=== PATIENT | female | born 1960 | race Two or more races ===

== ENCOUNTER → 2017-10-12 | Outpatient (CLI) | payer MEDICARE | LOC: M ADAMS 17:09 | DX: M25.532 Pain in left wrist (principal) | CPT/HCPCS: 73110 ==

== ENCOUNTER 2019-05-18 17:18 | Emergency (ER) | payer MEDICARE ==
[~2019-05-18] VITALS: Ht 167.6 cm; Wt 74.5 kg
[2019-05-18] MEDS ORDERED: VENTAER PO (17:47)
[2019-05-18] MEDS ORDERED: ADVA230A PO (17:47)
[2019-05-18 18:06] LABS: BASO % 0.3 % (0.0-1.0); EOS # 0.3 10^3/uL (0.0-0.5); EOS % 2.9 % (0.0-3.0); HEMOGLOBIN 15.4 g/dl (12.0-15.5); LYMPH # 2.9 10^3/uL (1.5-5.0); LYMPH % 25.3 % (24.0-44.0); MEAN CORPUSCULAR HEMOGLOBIN 30.5 pg (27.0-33.0); MEAN CORPUSCULAR HGB CONC 33.5 g/dl (32.0-36.5); MEAN CORPUSCULAR VOLUME 91.1 fl (80.0-96.0); MONO # 0.8 10^3/uL (0.0-0.8); MONO % 6.6 % (0.0-5.0); NEUTROPHILS # 7.5 10^3/uL (1.5-8.5); NEUTROPHILS % 64.7 % (36.0-66.0); PLATELET COUNT, AUTOMATED 245 10^3/uL (150-450); RED BLOOD COUNT 5.05 10^6/uL (4.00-5.40); WHITE BLOOD COUNT 11.6 10^3/uL (4.0-10.0)
[2019-05-18 18:34] LABS: CALCIUM LEVEL 9.2 MG/DL (8.5-10.1); CREATININE FOR GFR 1.06 MG/DL (0.55-1.30); GLOMERULAR FILTRATION RATE 56.7 (>51); POTASSIUM SERUM 4.3 MEQ/L (3.5-5.1); THYROID STIMULATING HORMONE 1.27 uIU/ML (0.358-3.740)
[2019-05-18 19:57] LABS: INFLUENZA A AMPLIFICATION NEGATIVE (NEGATIVE); INFLUENZA B AMPLIFICATION NEGATIVE (NEGATIVE)
[2019-05-18] MEDS ORDERED: AUGM500T34 PO (20:28)
[2019-05-18] MEDS ORDERED: PRED20TA PO (20:28)
[2019-05-18] MEDS ORDERED: NS 500 ML IV ONE (20:30)
[2019-05-18] MEDS ORDERED: dexameTHASONE 20 MG/5 ML VIAL (J1100) IV ONE (20:30)
[2019-05-18 21:29] VITALS: BP 122/66
--- NOTE | 2019-05-19 05:01 | ECGEPIP ---
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
--- NOTE | 2019-05-19 07:17 | REP ---
PA and lateral chest: There are no comparisons. Lung maritnez are hyperinflated but otherwise clear. Cardiac size is normal. The anthony, mediastinum, skeletal structures are unremarkable per Impression: Hyperinflation, otherwise negative PA and lateral chest. Electronically Signed by Kelechi Florez MD 05/19/2019 07:08 A
== END 2019-05-18 21:45 | disposition home or self-care (01) ==
LOC: M ED 17:18
DX: J32.9 Chronic sinusitis, unspecified (principal); R09.89 Other specified symptoms and signs involving the circulatory and respiratory systems; R05 Cough; J45.909 Unspecified asthma, uncomplicated; J44.9 Chronic obstructive pulmonary disease, unspecified; I95.1 Orthostatic hypotension; Z87.891 Personal history of nicotine dependence; Z88.2 Allergy status to sulfonamides; Z88.5 Allergy status to narcotic agent; Z91.040 Latex allergy status; Z79.51 Long term (current) use of inhaled steroids
CPT/HCPCS: 71046; 80048; 84443; 85025; 87502; 93005; 93041; 94760; 96361; 96374; 99285; J1100

== ENCOUNTER → 2021-01-12 | Outpatient (CLI) | payer MEDICARE ==
[~2021-01-12] MED LIST: ADVA230A PO; AUGM500T34 PO; PRED20TA PO; VENTAER PO
--- NOTE | 2021-01-13 07:46 | REP ---
INDICATION: CIGARETTE NICOTINE DEPENDENCE, LUNG CA SCREENING COMPARISON: None. TECHNIQUE: Axial noncontrast images from the thoracic inlet to the upper abdomen using low-dose lung screening technique (LDCT). 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 No acute consolidation, significant nodule, or mass lesion. No pleural effusion. No pneumothorax. Mediastinum is grossly unremarkable. IMPRESSION: Lung-RADS category 1. No suspicious nodule or mass lesion. Management recommendations include annual low-dose CT surveillance. COPD/emphysematous changes noted. <Electronically signed by Zana Bates > 01/13/21 1615
== END ==
LOC: M RAD 09:33
PROVIDERS: ATTEND Physician Assistant
DX: F17.210 Nicotine dependence, cigarettes, uncomplicated (principal)

== ENCOUNTER → 2022-09-05 | Outpatient (REF) | payer MEDICARE ==
[2022-09-05 17:31] LABS: HEMATOCRIT 44.4 % (36.0-47.0); HEMOGLOBIN 13.8 g/dl (12.0-15.5); MEAN CORPUSCULAR HEMOGLOBIN 28.6 pg (27.0-33.0); MEAN CORPUSCULAR HGB CONC 31.1 g/dl (32.0-36.5); MEAN CORPUSCULAR VOLUME 91.9 fl (80.0-96.0); PLATELET COUNT, AUTOMATED 282 10^3/uL (150-450); RED BLOOD COUNT 4.83 10^6/uL (4.00-5.40); WHITE BLOOD COUNT 7.5 10^3/uL (4.0-10.0)
[2022-09-05 17:54] LABS: MALB URINE SIEMENS < 3.0 MG/DL
[2022-09-05 17:55] LABS: CREATININE, URINE 30.7 MG/DL; MAU/CREAT RATIO 9.7 MCG/MG (0.0-30.0)
[2022-09-05 17:59] LABS: ALBUMIN 3.9 G/DL (3.2-5.2); ALKALINE PHOSPHATASE 64 U/L (46-116); ALT/SGPT 23 U/L (7.0-40); AST/SGOT 19 U/L (<34); BILIRUBIN,TOTAL 0.5 MG/DL (0.3-1.2); BLOOD UREA NITROGEN 11 MG/DL (9-23); CALCIUM LEVEL 9.3 MG/DL (8.3-10.6); CARBON DIOXIDE LEVEL 29 MMOL/L (20-31); CHLORIDE LEVEL 102 MMOL/L (98-107); CHOLESTEROL LEVEL 199 MG/DL (<200); CHOLESTEROL RISK RATIO 4.06 (<5); CREATININE FOR GFR 0.75 MG/DL (0.55-1.30); GLOMERULAR FILTRATION RATE > 60.0 (>45); GLUCOSE, FASTING 81 MG/DL (74-106); LDL CHOLESTEROL 127.8 MG/DL (<100); NON-HDL-C 150 MG/DL; POTASSIUM SERUM 4.6 MMOL/L (3.5-5.1); SODIUM LEVEL 141 MMOL/L (136-145); TRIGLYCERIDES LEVEL 111 MG/DL (<150)
[2022-09-05 18:00] LABS: THYROID STIMULATING HORMONE 2.776 uIU/ML (0.55-4.78)
[2022-09-05 18:01] LABS: FREE T4 1.21 NG/DL (0.89-1.76)
== END ==
LOC: M SFHCADAM 14:44
PROVIDERS: ATTEND Physician Assistant
DX: Z12.31 Encounter for screening mammogram for malignant neoplasm of breast (principal); L73.2 Hidradenitis suppurativa; F17.211 Nicotine dependence, cigarettes, in remission; Z12.11 Encounter for screening for malignant neoplasm of colon; J44.9 Chronic obstructive pulmonary disease, unspecified; R63.5 Abnormal weight gain; I10 Essential (primary) hypertension; Z13.220 Encounter for screening for lipoid disorders

== ENCOUNTER → 2022-11-14 | Outpatient (CLI) | payer MEDICARE | LOC: M RAD 10:32 | PROVIDERS: ATTEND Physician Assistant | DX: Z87.891 Personal history of nicotine dependence (principal) ==

== ENCOUNTER → 2023-10-03 | Outpatient (CLI) | payer MEDICARE | LOC: M WHC 11:27 | PROVIDERS: ATTEND Physician Assistant | DX: Z12.31 Encounter for screening mammogram for malignant neoplasm of breast (principal); Z13.820 Encounter for screening for osteoporosis ==

== ENCOUNTER → 2024-01-08 | Outpatient (REF) | payer MEDICARE | LOC: M SFHCADAM 10:13 | PROVIDERS: ATTEND Physician Assistant | DX: J44.9 Chronic obstructive pulmonary disease, unspecified (principal); F17.218 Nicotine dependence, cigarettes, with other nicotine-induced disorders; I10 Essential (primary) hypertension; R00.0 Tachycardia, unspecified; Z13.220 Encounter for screening for lipoid disorders; K21.9 Gastro-esophageal reflux disease without esophagitis ==